=== PATIENT | female | born 1980 | race Caucasian/White ===

== ENCOUNTER 2017-11-17 14:18 | Emergency (ER) | payer MEDICAID, OTHER ==
[2017-11-17] MEDS: predniSONE 20 MG TAB PO (15:03)
[2017-11-17] MEDS: ALBUTEROL 0.083% (NEB) 2.5 MG/3 ML AMP HHN (15:35)
[2017-11-17] MEDS: IPRATROPIUM (NEB) 0.5 MG/2.5 ML AMP HHN (15:36)
== END 2017-11-17 16:11 | disposition home or self-care (01) ==
LOC: FTE 14:18
DX: J20.9 Acute bronchitis, unspecified (principal)
CPT/HCPCS: 94664; 99284-25

== ENCOUNTER 2018-03-24 09:24 | Emergency (ER) | payer MEDICAID ==
[2018-03-24] MEDS: KETOROLAC 30 MG INJ IM ×2 (10:20→10:21)
[2018-03-24 10:24] LABS: ADD UMIC YES; UR ASCORBIC ACID 20 mg/dL (NEGATIVE); UR BACTERIA FEW /HPF (NONE SEEN); UR BILIRUBIN (Dip) NEGATIVE (NEGATIVE); UR BLOOD (Dip) NEGATIVE (NEGATIVE); UR CLARITY SLIGHTLY CLOUDY (CLEAR); UR COLOR YELLOW (YELLOW); UR GLUCOSE (Dip) NEGATIVE (NEGATIVE); UR KETONES (Dip) NEGATIVE (NEGATIVE); UR LEUKOCYTE ESTERASE (Dip) 3+ Leu/ul (NEGATIVE); UR MUCUS FEW /HPF (NONE SEEN); UR NITRITE (Dip) NEGATIVE (NEGATIVE); UR RBC 1 /HPF (0-5); UR SPECIFIC GRAVITY (Dip) 1.024 (1.003-1.030); UR SQUAMOUS EPITHELIAL CELL MODERATE /HPF (FEW); UR TOTAL PROTEIN (Dip) 1+ mg/dl (NEGATIVE); UR UROBILINOGEN (Dip) NEGATIVE (NEGATIVE); UR WBC 4 /HPF (0-5)
== END 2018-03-24 11:03 | disposition home or self-care (01) ==
LOC: FTE 09:24
DX: N39.0 Urinary tract infection, site not specified (principal); R10.2 Pelvic and perineal pain
CPT/HCPCS: 72100; 76830; 76856; 81001; 81025; 96372; 99285-25